=== PATIENT | female | born 1960 | race Caucasian/White ===

== ENCOUNTER 2022-07-18 07:40 | Emergency (ER) | payer OTHER ==
[2022-07-18] MEDS ORDERED: Thiamine HCl 200 MG/2 ML VIAL ONE (08:55)
[2022-07-18] MEDS ORDERED: Magnesium 2 GM/50 ML BAG (IN WATER) ONE (08:55)
[2022-07-18 08:56] LABS: Hemoglobin 11.4 g/dL (12.0-15.5); Mean Corpuscular HGB CONC 32.4 g/dL (32.0-36.0); Mean Corpuscular Hemoglobin 26.6 pg (27.0-33.0); Mean Corpuscular Volume 82.2 fl (81.6-98.3); RBC Distribution Width 19.6 % (11.5-14.5); Red Blood Cell (RBC) Count 4.28 10x6/uL (3.90-5.03); White Blood Cell (WBC) Count 1.9 10x3/uL (3.5-10.5)
[2022-07-18] MEDS ORDERED: Multivit, Therapeutic 1 TAB PO SCH (09:00)
[2022-07-18] MEDS ORDERED: Folic Acid 1 MG TAB PO SCH (09:00)
[2022-07-18 09:05] LABS: Mean Platelet Volume 11.1 fl (7.4-10.4); Platelet Count 58 10x3/uL (150-450)
[2022-07-18 09:06] LABS: MDiff Complete? YES
[2022-07-18 09:21] LABS: ALT (SGPT) 25 U/L (8-55); AST (SGOT) 53 U/L (5-34); Albumin 3.4 g/dL (3.4-4.8); Alkaline Phosphatase 106 U/L (40-110); Anion Gap 15 mmol/L (10-20); BUN (Urea Nitrogen) 25 mg/dL (9.8-20.1); Bilirubin, Total 2.1 mg/dL (0.2-1.2); Calc. Creatinine Clearance 0 mL/min (70-130); Calcium 9.2 mg/dL (7.8-10.44); Carbon Dioxide 22 mmol/L (23-31); Chloride 102 mmol/L (98-107); Estimated GFR 38; Globulin 3.7 g/dL (2.4-3.5); Glucose 129 mg/dL (80-115); Lipase 170 U/L (8-78); Magnesium 2.1 mg/dL (1.6-2.6); Potassium 4.8 mmol/L (3.5-5.1); Protein, Total 7.1 g/dL (5.8-8.1); Sodium 134 mmol/L (136-145)
[2022-07-18 09:25] LABS: Eosinophils 3 % (0-10); Lymphocytes 13 % (21-51); Monocytes 10 % (0-10); Neutrophil 74 % (42-75)
[2022-07-18 09:27] LABS: Platelet Morphology Comment Appears Decreased
[2022-07-18 09:28] LABS: Ovalocytes SLIGHT = 2-5 cells (100X) (0-1/hpf)
== END 2022-07-18 11:14 ==
LOC: CSHERS 07:40
DX: K72.90 Hepatic failure, unspecified without coma (principal); I10 Essential (primary) hypertension
CPT/HCPCS: 70450; 80053; 82140; 83690; 83735; 85025; 96374; 96375; J3411; J3475